=== PATIENT | male | born 1980 | race Caucasian/White ===

== ENCOUNTER 2017-03-22 11:54 | Emergency (ER) | payer SELFPAY ==
[~2017-03-22] VITALS: Ht 182.9 cm; Wt 93.2 kg
[~2017-03-22 11:54] MED LIST: AUGMENTIN875 MG OR; AZITHROMYCIN250 MG PO; BACTRIM DS1 TAB OR; BACTRIM DS1 TAB PO; DARVOCET-N 100100 MG OR; DOXYCYC MONO100 MG OR; LORTAB 10 OR; LORTAB 5 OR; MELOXICAM7.5 MG PO; NAPROSYN500 MG OR; TORADOL OR; ULTRAM50 MG OR; [UNRECOGNIZED DRUG - REMARK]
[2017-03-22] MEDS ORDERED: PENICILLN VK500 MG PO (12:41)
[2017-03-22] MEDS ORDERED: LORTAB 5-325 MG1 TAB PO (12:41)
[2017-03-22 13:00] VITALS: BP 128/90
== END 2017-03-22 13:17 | disposition home or self-care (01) | DRG 159 ==
LOC: ED 11:54
DX: K04.7 Periapical abscess without sinus (principal); F17.210 Nicotine dependence, cigarettes, uncomplicated

== ENCOUNTER 2020-05-05 20:42 | Emergency (ER) | payer SELFPAY ==
[~2020-05-05] VITALS: Ht 182.9 cm; Wt 100.0 kg
[~2020-05-05 20:42] MED LIST changes: +LORTAB 5-325 MG1 TAB PO; +PENICILLN VK500 MG PO
[2020-05-05 20:50] VITALS: BP 140/77
== END 2020-05-05 22:25 | disposition home or self-care (01) | DRG 204 ==
LOC: ED 20:42
DX: R05 Cough (principal); R09.89 Other specified symptoms and signs involving the circulatory and respiratory systems; R53.83 Other fatigue; F17.210 Nicotine dependence, cigarettes, uncomplicated; Z20.828 Contact with and (suspected) exposure to other viral communicable diseases

== ENCOUNTER 2020-07-07 05:39 | Emergency (ER) | payer SELFPAY ==
[~2020-07-07] VITALS: Ht 182.9 cm; Wt 93.2 kg
[2020-07-07 06:14] LABS: URINE BILIRUBIN - DIPSTICK NEGATIVE (NEGATIVE); URINE BLOOD DIPSTICK SMALL (NEGATIVE); URINE COLOR YELLOW; URINE GLUCOSE - DIPSTICK NEGATIVE (NEGATIVE); URINE KETONE NEGATIVE (NEGATIVE); URINE PROTEIN - DIPSTICK TRACE mg/dL (NEG-TRACE); URINE SPECIFIC GRAVITY >=1.030; URINE UROBILINOGEN - DIPSTICK 0.2 E.U./dL (0.2)
[2020-07-07 06:21] LABS: URINE LEUK ESTERASE MODERATE (NEGATIVE); URINE NITRITE - DIPSTICK NEGATIVE (Negative)
[2020-07-07 06:22] LABS: URINE EPITHELIAL CELLS MODERATE EPI/hpf (0-FEW); URINE WBC >100 WBC/hpf (0-5)
[2020-07-07 06:23] LABS: URINE BACTERIA MODERATE hpf
[2020-07-07] MEDS ORDERED: CEPHALEXIN500 MG PO (06:41)
[2020-07-07] MEDS ORDERED: NAPROXEN500 MG PO ×2 (06:41)
[2020-07-07] MEDS ORDERED: PYRIDIUM200 MG PO ×2 (06:41)
[2020-07-07 06:55] VITALS: BP 144/82
== END 2020-07-07 06:55 | disposition home or self-care (01) | DRG 554 ==
LOC: ED 05:39
PROVIDERS: Emergency Medicine
DX: M19.071 Primary osteoarthritis, right ankle and foot (principal); N39.0 Urinary tract infection, site not specified; Z20.2 Contact with and (suspected) exposure to infections with a predominantly sexual mode of transmission; F17.210 Nicotine dependence, cigarettes, uncomplicated

== ENCOUNTER 2020-08-13 16:23 | Emergency (ER) | payer SELFPAY ==
[~2020-08-13] VITALS: Ht 182.9 cm; Wt 80.0 kg
[~2020-08-13 16:23] MED LIST changes: +CEPHALEXIN500 MG PO; +NAPROXEN500 MG PO; +PYRIDIUM200 MG PO
[2020-08-13 23:08] LABS: HEMATOCRIT 45.9 % (39.0-50.0); IMMATURE GRANULOCYTES 0.4 % (0.0-5.0); MEAN CELL VOLUME 89.8 fL CALC (80.0-100.0); MEAN CORPUSCULAR HGB 29.2 pG CALC (26.0-32.0); MEAN CORPUSCULAR HGB CONC 32.5 g/dL CAL (32.0-36.0); NEUT# 5.02 thou/uL (1.82-7.42); RED BLOOD COUNT 5.11 mill/uL (4.70-6.10); RED CELL DISTRI WIDTH 12.8 % (11.5-15.5)
[2020-08-13 23:10] LABS: HEMOGLOBIN 14.9 g/dl (14.0-18.0); URINE BILIRUBIN - DIPSTICK NEGATIVE (NEGATIVE); URINE BLOOD DIPSTICK TRACE-INTACT (NEGATIVE); URINE COLOR YELLOW; URINE GLUCOSE - DIPSTICK NEGATIVE (NEGATIVE); URINE KETONE NEGATIVE (NEGATIVE); URINE LEUK ESTERASE NEGATIVE (NEGATIVE); URINE NITRITE - DIPSTICK NEGATIVE (Negative); URINE PROTEIN - DIPSTICK NEGATIVE (NEG-TRACE); URINE SPECIFIC GRAVITY 1.025; URINE UROBILINOGEN - DIPSTICK 0.2 E.U./dL (0.2)
[2020-08-13 23:20] LABS: ALBUMIN 4.4 g/dL (3.2-5.0); ANION GAP 13 (6-22 (CALC)); BUN 18 mg/dL (9-20); BUN/CREATININE RATIO 20 (12-20 (CALC)); CARBON DIOXIDE 32 mmol/l (22-30); CHLORIDE 97 mmol/l (95-108); CREATININE 0.9 mg/dL (0.7-1.3); GFR > 60 ML/MIN (>=60 (CALC)); GFR FOR AFR.AMER. > 60 ML/MIN (>=60 (CALC)); POTASSIUM 4.1 mmol/l (3.5-5.1); SGOT/AST 34 u/l (17-59); SODIUM 138 mmol/l (137-146); TOTAL PROTEIN 7.9 g/dL (6.3-8.2)
[2020-08-13 23:23] LABS: ALKALINE PHOSPHATASE 88 u/l (38-126)
[2020-08-14 02:14] VITALS: BP 153/79
== END 2020-08-14 02:22 | disposition home or self-care (01) | DRG 948 ==
LOC: ED 16:23
PROVIDERS: Emergency Medicine
DX: R60.9 Edema, unspecified (principal); F17.200 Nicotine dependence, unspecified, uncomplicated

== ENCOUNTER 2023-04-21 07:05 | Emergency (ER) | payer SELFPAY ==
[2023-04-21] VITALS (7 sets, daily range): BP systolic 129–159; BP diastolic 84–104
[~2023-04-21] VITALS: Ht 182.9 cm; Wt 86.2 kg
[2023-04-21] MEDS ORDERED: FLEXERIL5 M1 PO (08:31)
== END 2023-04-21 08:47 | disposition home or self-care (01) | DRG 556 ==
LOC: ED 07:05
DX: M79.641 Pain in right hand (principal); M25.511 Pain in right shoulder; F17.200 Nicotine dependence, unspecified, uncomplicated

== ENCOUNTER 2023-06-22 06:42 | Emergency (ER) | payer SELFPAY ==
[~2023-06-22] VITALS: Ht 182.9 cm; Wt 82.0 kg
[~2023-06-22 06:42] MED LIST changes: +FLEXERIL5 M1 PO
[2023-06-22 07:05] VITALS: BP 128/83
[2023-06-22 07:30] VITALS: BP 116/77
[2023-06-22 07:52] LABS: BASO% 0.4 % (0-3); IMMATURE GRANULOCYTES 0.1 % (0.0-5.0); LYMPH% 11.4 % (15-41); MEAN CELL VOLUME 87.7 fL CALC (80.0-100.0); MEAN CORPUSCULAR HGB 29.8 pG CALC (26.0-32.0); MONO% 6.9 % (2-13); NEUT# 10.88 thou/uL (1.82-7.42); NEUT% 80.2 % (42-76); RED BLOOD COUNT 4.23 mill/uL (4.70-6.10); RED CELL DISTRI WIDTH 12.4 % (11.5-15.5)
[2023-06-22 07:53] LABS: HEMATOCRIT 37.1 % (39.0-50.0); HEMOGLOBIN 12.6 g/dl (14.0-18.0)
[2023-06-22 08:00] VITALS: BP 132/77
[2023-06-22 08:16] LABS: ALBUMIN 4.2 g/dL (3.2-5.0); ALKALINE PHOSPHATASE 79 u/l (38-126); ANION GAP 12 (6-22 (CALC)); BILIRUBIN, TOTAL 1.6 mg/dL (0.2-1.3); BUN 18 mg/dL (9-20); BUN/CREATININE RATIO 18 (12-20 (CALC)); CARBON DIOXIDE 34 mmol/l (22-30); CHLORIDE 92 mmol/l (95-108); GFR FOR AFR.AMER. > 60 ML/MIN (>=60 (CALC)); GFR OTHER RACES > 60 ML/MIN (>=60 (CALC)); POTASSIUM 3.4 mmol/l (3.5-5.1); SGOT/AST 33 u/l (17-59); SODIUM 135 mmol/l (137-146); TOTAL PROTEIN 8.1 g/dL (6.3-8.2)
[2023-06-22 08:30] VITALS: BP 123/78
[2023-06-22 08:55] VITALS: BP 123/74
[2023-06-22] MEDS ORDERED: CEPHALEXIN750 MG PO (09:08)
--- NOTE | 2023-06-25 10:49 | NUR ---
Attempted to contact pt via phone yesterday and this morning. No answer, left voicemails yesterday and today to return call to Pharmacy department.
== END 2023-06-22 08:55 | disposition left against medical advice (07) | DRG 603 ==
LOC: ED 06:42 → ED-I 08:30 → ED 08:55
PROVIDERS: Family Medicine
DX: L03.114 Cellulitis of left upper limb (principal); F17.290 Nicotine dependence, other tobacco product, uncomplicated; Z53.29 Procedure and treatment not carried out because of patient's decision for other reasons